=== PATIENT | female | born 1935 | race Caucasian/White ===

== ENCOUNTER 2019-02-10 22:39 | Inpatient (IN) | payer MEDICARE, MEDICAID ==
[~2019-02-10] VITALS: Ht 152.4 cm; Wt 49.0 kg
[~2019-02-10 22:39] MED LIST: BENA5TAB6 PO; MEMA5TAB7 PO; MIRT15TA6 PO; SERT25TA74 PO; SITA50TA3 PO; VITA1TAB20 PO
[2019-02-11] MEDS ORDERED: SODIUM CHLORIDE 0.9% 1,000 ML IV ONE (00:04)
[2019-02-11] MEDS ORDERED: ONDANSETRON HCL 4MG/2ML INJ IV STA (00:04)
[2019-02-11] MEDS ORDERED: MORPHINE SULFATE 4 MG/ML CPJ (NOT FOR IM USE) IV STA (00:04)
[2019-02-11 00:41] LABS: HEMATOCRIT. 33.6 % (36.0-48.0); HEMOGLOBIN. 11.6 g/dL (12.0-16.0); MEAN CORPUSCULAR HEMOGLOBIN 34.8 pg (28.0-32.0); MEAN CORPUSCULAR VOLUME 100.7 fL (81.0-99.0); MEAN PLATELET VOLUME 8.6 fl (7.4-10.4); PLATELET 254 x1000/uL (130-400); RED BLOOD CELL COUNT 3.34 mill/uL (4.2-5.4); RED CELL DISTRIBUTION WIDTH 13.6 % (11.6-14.6)
[2019-02-11 00:50] LABS: CHLORIDE 107 mEq/L (98-107)
[2019-02-11 00:51] LABS: INR 1.1; PROTHROMBIN TIME 10.9 sec (9.6-11.0)
[2019-02-11 05:20] VITALS: BP 112/49
[2019-02-11 06:08] LABS: PLATELET ESTIMATE NORMAL
[2019-02-11 06:13] VITALS: BP 112/49
[2019-02-11 08:00] VITALS: BP 129/54
[2019-02-11] MEDS ORDERED: ONDANSETRON HCL 4MG/2ML INJ IV PRN (08:45)
[2019-02-11] MEDS ORDERED: CEFTRIAXONE 1 G PREMIX 50 ML IV SCH (09:00)
[2019-02-11] MEDS: DEXT 5%/0.45% NACL KCL 20MEQ/L 1,000 ML IV SCH (11:28)
[2019-02-11] MEDS: ENOXAPARIN 30MG/0.3ML SYR SUBCUT SCH (11:29)
[2019-02-11 12:00] VITALS: BP 127/58
[2019-02-11 13:01] LABS: CLARITY URINE CLOUDY (CLEAR); COLOR URINE YELLOW (YELLOW); KETONES URINE 2+ (NEGATIVE); LEUKOCYTE ESTERASE URINE NEGATIVE (NEGATIVE); NITRITE URINE POSITIVE (NEGATIVE); OCCULT BLOOD URINE NEGATIVE (NEGATIVE); PROTEIN URINE NEGATIVE (NEGATIVE); SPECIFIC GRAVITY URINE 1.025 (1.005-1.030)
[2019-02-11] MEDS: CEFTRIAXONE 1,000 MG in DEXTROSE 5% WATER 50 ML IV SCH (13:42)
[2019-02-11 16:00] VITALS: BP 105/52
[2019-02-11] MEDS ORDERED: MORPHINE SULFATE 2 MG/ML CPJ (NOT FOR IM USE) IV PRN (16:30)
[2019-02-11] MEDS ORDERED: DEXTROSE 50% WATER 50ML SYRINGE IV PRN (16:30)
[2019-02-11] MEDS: BLOOD SUGAR DIAGNOSTIC STRIP TEST SCH ×2 (17:10→21:00)
[2019-02-11] MEDS: INSULIN LISPRO 100 UNITS/ML SUBCUT SCH (18:33)
[2019-02-11 20:00] VITALS: BP 135/51
[2019-02-12] VITALS (10 sets, daily range): BP systolic 107–155; BP diastolic 35–85
[2019-02-12 00:09] LABS: BASOPHILS % 0.1 % (0.0-2.0); HEMOGLOBIN. 8.2 g/dL (12.0-16.0); MEAN CORPUSCULAR HEMOGLOBIN 35.2 pg (28.0-32.0); MEAN CORPUSCULAR VOLUME 102.6 fL (81.0-99.0); MEAN PLATELET VOLUME 8.1 fl (7.4-10.4); MONOCYTES % 10.7 % (2.0-8.0); NEUTROPHILS % 77.2 % (40.0-76.0); PLATELET 186 x1000/uL (130-400); RED BLOOD CELL COUNT 2.34 mill/uL (4.2-5.4); RED CELL DISTRIBUTION WIDTH 13.5 % (11.6-14.6)
[2019-02-12 00:16] LABS: CHLORIDE 110 mEq/L (98-107)
[2019-02-12] MEDS: DEXT 5%/0.45% NACL KCL 20MEQ/L 1,000 ML IV SCH ×2 (06:24→06:30)
[2019-02-12] MEDS: INSULIN LISPRO 100 UNITS/ML SUBCUT SCH ×4 (06:36→18:55)
[2019-02-12] MEDS: BLOOD SUGAR DIAGNOSTIC STRIP TEST SCH ×3 (06:37→17:58)
[2019-02-12] MEDS: ENOXAPARIN 30MG/0.3ML SYR SUBCUT SCH (09:30)
[2019-02-12 09:36] LABS: BASOPHILS % 0.1 % (0.0-2.0); HEMATOCRIT. 21.6 % (36.0-48.0); HEMOGLOBIN. 7.6 g/dL (12.0-16.0); LYMPHOCYTES % 10.9 % (20.0-50.0); MEAN CORPUSCULAR HEMOGLOBIN 35.6 pg (28.0-32.0); MEAN CORPUSCULAR VOLUME 101.2 fL (81.0-99.0); MEAN PLATELET VOLUME 7.9 fl (7.4-10.4); MONOCYTES % 9.1 % (2.0-8.0); NEUTROPHILS % 79.9 % (40.0-76.0); PLATELET 160 x1000/uL (130-400); RED BLOOD CELL COUNT 2.13 mill/uL (4.2-5.4); RED CELL DISTRIBUTION WIDTH 13.4 % (11.6-14.6)
[2019-02-12 09:42] LABS: CHLORIDE 110 mEq/L (98-107)
[2019-02-12 09:52] LABS: CREATINE KINASE 714 IU/L (26-192)
[2019-02-12 09:55] LABS: CREATINE KINASE MB FRACTION 7.1 ng/mL (0.5-3.6)
[2019-02-12] MEDS ORDERED: HYDRALAZINE 20MG/ML VIAL IV PRN (10:45)
[2019-02-12] MEDS: CEFTRIAXONE 1,000 MG in DEXTROSE 5% WATER 50 ML IV SCH (11:10)
[2019-02-12] MEDS ORDERED: ACETAMINOPHEN 650MG SUPP PR PRN (15:15)
[2019-02-12] MEDS ORDERED: LORAZEPAM 2MG/ML CPJ IV PRN (15:15)
[2019-02-12] MEDS ORDERED: BISACODYL 10MG SUPP PR PRN (15:15)
[2019-02-12 15:51] LABS: BG CARBOXYHEMOGLOBIN 0.3 % (0.5-1.5); BG DEOXYHEMOGLOBIN 3.1 % (0.0-5.0); BG FRACTION INSPIRED OXYGEN 21; BG METHEMOGLOBIN 0.4 % (0.0-1.5); BG OXYGEN SATURATION 96.9 % (92.0-98.5); BG OXYHEMOGLOBIN 96.2 % (94.0-97.0); BG PCO2 36.3 mmHg (35.0-45.0); BG PH 7.439 (7.350-7.450); BG PO2 94.7 mmHg (75.0-100.0); BG SAMPLE SITE LEFT BRACHIAL; BG TOTAL HEMOGLOBIN 7.8 g/dL (12.0-18.0); BG VENT MODE ROOM AIR
[2019-02-12 16:59] LABS: HEMOGLOBIN 7.9 g/dL (12.0-16.0)
[2019-02-12 17:08] LABS: CREATINE KINASE MB FRACTION 6.5 ng/mL (0.5-3.6)
[2019-02-13] VITALS: BP 137/60
[2019-02-13] MEDS: DEXT 5%/0.45% NACL KCL 20MEQ/L 1,000 ML IV SCH ×3 (06:01→21:25)
[2019-02-13] MEDS: BLOOD SUGAR DIAGNOSTIC STRIP TEST SCH ×4 (06:13→21:20)
[2019-02-13] MEDS: INSULIN LISPRO 100 UNITS/ML SUBCUT SCH ×4 (06:13→21:24)
[2019-02-13 08:00] VITALS: BP 152/40
[2019-02-13] MEDS: ENOXAPARIN 30MG/0.3ML SYR SUBCUT SCH (09:30)
[2019-02-13 11:14] LABS: BASOPHILS % 0.1 % (0.0-2.0); EOSINOPHILS % 0.1 % (0.0-5.0); HEMATOCRIT. 29.4 % (36.0-48.0); HEMOGLOBIN. 10.1 g/dL (12.0-16.0); LYMPHOCYTES % 13.5 % (20.0-50.0); MEAN CORPUSCULAR HEMOGLOBIN 34.5 pg (28.0-32.0); MEAN PLATELET VOLUME 8.6 fl (7.4-10.4); MONOCYTES % 8.7 % (2.0-8.0); NEUTROPHILS % 77.6 % (40.0-76.0); PLATELET 150 x1000/uL (130-400); RED BLOOD CELL COUNT 2.94 mill/uL (4.2-5.4); RED CELL DISTRIBUTION WIDTH 13.8 % (11.6-14.6)
[2019-02-13 11:30] LABS: CHLORIDE 108 mEq/L (98-107)
[2019-02-13] MEDS ORDERED: HYDROCODONE/ACETAMINOPHEN 5/325MG TABLET PO PRN (11:30)
[2019-02-13 11:56] VITALS: BP 149/44
[2019-02-13] MEDS: CEFTRIAXONE 1,000 MG in DEXTROSE 5% WATER 50 ML IV SCH (13:40)
[2019-02-13 16:00] VITALS: BP 169/60
[2019-02-13 16:27] LABS: BASOPHILS % 0.1 % (0.0-2.0); EOSINOPHILS % 0.2 % (0.0-5.0); HEMATOCRIT. 27.5 % (36.0-48.0); HEMOGLOBIN. 9.6 g/dL (12.0-16.0); LYMPHOCYTES % 8.4 % (20.0-50.0); MEAN CORPUSCULAR HEMOGLOBIN 35.1 pg (28.0-32.0); MEAN CORPUSCULAR VOLUME 100.5 fL (81.0-99.0); MEAN PLATELET VOLUME 8.5 fl (7.4-10.4); NEUTROPHILS % 82.3 % (40.0-76.0); PLATELET 140 x1000/uL (130-400); RED BLOOD CELL COUNT 2.74 mill/uL (4.2-5.4); RED CELL DISTRIBUTION WIDTH 13.8 % (11.6-14.6)
[2019-02-13 20:00] VITALS: BP 144/46
[2019-02-13] MEDS: MORPHINE SULFATE 2 MG/ML CPJ (NOT FOR IM USE) IV PRN (23:47)
[2019-02-14] VITALS: BP 135/61
[2019-02-14 04:00] VITALS: BP 115/55
[2019-02-14] MEDS: BLOOD SUGAR DIAGNOSTIC STRIP TEST SCH ×4 (06:20→20:34)
[2019-02-14] MEDS: INSULIN LISPRO 100 UNITS/ML SUBCUT SCH ×4 (06:21→20:49)
[2019-02-14 08:00] VITALS: BP 128/72
[2019-02-14] MEDS: DEXT 5%/0.45% NACL KCL 20MEQ/L 1,000 ML IV SCH ×2 (08:50→14:18)
[2019-02-14 09:15] LABS: BASOPHILS % 0.3 % (0.0-2.0); EOSINOPHILS % 0.6 % (0.0-5.0); HEMOGLOBIN. 8.8 g/dL (12.0-16.0); LYMPHOCYTES % 17.9 % (20.0-50.0); MEAN CORPUSCULAR HEMOGLOBIN 35.4 pg (28.0-32.0); MEAN CORPUSCULAR VOLUME 100.3 fL (81.0-99.0); MEAN PLATELET VOLUME 7.5 fl (7.4-10.4); MONOCYTES % 10.4 % (2.0-8.0); NEUTROPHILS % 70.8 % (40.0-76.0); PLATELET 145 x1000/uL (130-400); RED BLOOD CELL COUNT 2.49 mill/uL (4.2-5.4); RED CELL DISTRIBUTION WIDTH 13.6 % (11.6-14.6)
[2019-02-14] MEDS ORDERED: VANCOMYCIN HCL 1 GM/VIAL ONE (09:50)
[2019-02-14] MEDS ORDERED: BACITRACIN 15GM TUBE TOP ONE (09:50)
[2019-02-14] MEDS ORDERED: DEXAMETHASONE 4MG/ML 1ML VIAL ONE (10:33)
[2019-02-14] MEDS ORDERED: EPHEDRINE SULFATE 50MG/ML VIAL ONE (10:33)
[2019-02-14] MEDS ORDERED: SODIUM CHLORIDE 0.9% 10ML VIAL ONE (10:33)
[2019-02-14] MEDS ORDERED: CEFAZOLIN SODIUM 1000MG/VIAL ONE (10:45)
[2019-02-14] MEDS ORDERED: GLYCOPYRROLATE 0.2 MG/ML 2ML VIAL ONE (10:47)
[2019-02-14] MEDS ORDERED: ESMOLOL HCL 10MG/ML 10ML VIAL IV ONE (11:03)
[2019-02-14] MEDS ORDERED: BUPIVACAINE HCL 0.5% (5MG/ML) 50ML ONE (11:30)
[2019-02-14] MEDS ORDERED: HYDROCODONE/ACETAMINOPHEN 5/325MG TABLET PO PRN (11:45)
[2019-02-14] MEDS ORDERED: ONDANSETRON HCL 4MG/2ML INJ ONE (11:50)
[2019-02-14] MEDS ORDERED: LEVOFLOXACIN 500MG PREMIX 100 ML IV SCH (12:00)
[2019-02-14] MEDS ORDERED: CEFAZOLIN SODIUM 1000MG/VIAL IV SCH (14:00)
[2019-02-14 14:13] VITALS: BP 145/68
[2019-02-14] MEDS: CEFAZOLIN 1000MG PREMIX 50 ML IV SCH ×2 (15:03→21:43)
[2019-02-14 16:00] VITALS: BP 122/67
[2019-02-14 20:00] VITALS: BP 127/57
[2019-02-14] MEDS: MORPHINE SULFATE 2 MG/ML CPJ (NOT FOR IM USE) IV PRN (20:27)
[2019-02-15] VITALS (7 sets, daily range): BP systolic 108–140; BP diastolic 51–70
[2019-02-15] MEDS: DEXT 5%/0.45% NACL KCL 20MEQ/L 1,000 ML IV SCH ×2 (03:05→14:55)
[2019-02-15] MEDS: CEFAZOLIN 1000MG PREMIX 50 ML IV SCH (05:15)
[2019-02-15] MEDS: BLOOD SUGAR DIAGNOSTIC STRIP TEST SCH ×4 (06:42→21:00)
[2019-02-15] MEDS: INSULIN LISPRO 100 UNITS/ML SUBCUT SCH ×4 (06:45→21:37)
[2019-02-15 07:04] LABS: HEMATOCRIT 25.9 % (36.0-48.0); MEAN CORPUSCULAR HEMOGLOBIN 35.3 pg (28.0-32.0); MEAN CORPUSCULAR VOLUME 101.6 fL (81.0-99.0); PLATELET 178 x1000/uL (130-400); RED BLOOD CELL COUNT 2.55 mill/uL (4.2-5.4); RED CELL DISTRIBUTION WIDTH 13.8 % (11.6-14.6)
[2019-02-15 07:47] LABS: CHLORIDE 108 mEq/L (98-107)
[2019-02-15] MEDS: MORPHINE SULFATE 2 MG/ML CPJ (NOT FOR IM USE) IV PRN (09:25)
[2019-02-15] MEDS: LEVOFLOXACIN 250MG PREMIX 50 ML IV SCH (11:58)
[2019-02-15] MEDS ORDERED: MORPHINE SULFATE 2 MG/ML CPJ (NOT FOR IM USE) IV PRN (16:45)
[2019-02-15] MEDS: ASPIRIN 81MG EC TABLET PO SCH (17:15)
[2019-02-16 04:00] VITALS: BP 114/57
[2019-02-16] MEDS: BLOOD SUGAR DIAGNOSTIC STRIP TEST SCH ×4 (06:05→21:54)
[2019-02-16] MEDS: INSULIN LISPRO 100 UNITS/ML SUBCUT SCH ×4 (06:26→21:54)
[2019-02-16] MEDS: ASPIRIN 81MG EC TABLET PO SCH (10:06)
[2019-02-16 10:56] LABS: BASOPHILS % 0.1 % (0.0-2.0); EOSINOPHILS % 0.7 % (0.0-5.0); HEMATOCRIT. 25.3 % (36.0-48.0); HEMOGLOBIN. 8.7 g/dL (12.0-16.0); LYMPHOCYTES % 8.1 % (20.0-50.0); MEAN CORPUSCULAR VOLUME 101.9 fL (81.0-99.0); MEAN PLATELET VOLUME 8.6 fl (7.4-10.4); MONOCYTES % 6.4 % (2.0-8.0); NEUTROPHILS % 84.7 % (40.0-76.0); PLATELET 201 x1000/uL (130-400); RED BLOOD CELL COUNT 2.48 mill/uL (4.2-5.4); RED CELL DISTRIBUTION WIDTH 13.9 % (11.6-14.6)
[2019-02-16 10:57] LABS: CHLORIDE 106 mEq/L (98-107)
[2019-02-16 12:00] VITALS: BP 119/54
[2019-02-16] MEDS: LEVOFLOXACIN 250MG PREMIX 50 ML IV SCH (13:07)
[2019-02-16 16:00] VITALS: BP 103/44
[2019-02-16] MEDS ORDERED: MORPHINE SULFATE 2 MG/ML CPJ (NOT FOR IM USE) IV PRN (18:15)
[2019-02-16 20:00] VITALS: BP 113/47
[2019-02-17] VITALS (11 sets, daily range): BP systolic 107–139; BP diastolic 46–80
[2019-02-17 09:48] LABS: BASOPHILS % 0.3 % (0.0-2.0); EOSINOPHILS % 2.1 % (0.0-5.0); HEMATOCRIT. 21.7 % (36.0-48.0); HEMOGLOBIN. 7.6 g/dL (12.0-16.0); LYMPHOCYTES % 18.7 % (20.0-50.0); MEAN CORPUSCULAR HEMOGLOBIN 35.7 pg (28.0-32.0); MEAN CORPUSCULAR VOLUME 101.9 fL (81.0-99.0); MEAN PLATELET VOLUME 7.8 fl (7.4-10.4); MONOCYTES % 7.3 % (2.0-8.0); NEUTROPHILS % 71.6 % (40.0-76.0); PLATELET 246 x1000/uL (130-400); RED BLOOD CELL COUNT 2.13 mill/uL (4.2-5.4); RED CELL DISTRIBUTION WIDTH 13.9 % (11.6-14.6)
[2019-02-17 10:00] LABS: CHLORIDE 106 mEq/L (98-107)
[2019-02-17] MEDS: LEVOFLOXACIN 250MG PREMIX 50 ML IV SCH (11:29)
[2019-02-17] MEDS: ASPIRIN 81MG EC TABLET PO SCH (11:42)
[2019-02-17] MEDS: BLOOD SUGAR DIAGNOSTIC STRIP TEST SCH ×4 (11:51→21:24)
[2019-02-17] MEDS: INSULIN LISPRO 100 UNITS/ML SUBCUT SCH ×4 (11:56→21:33)
[2019-02-17] MEDS: ACETAMINOPHEN 325MG TABLET PO PRN (14:18)
[2019-02-17 17:43] LABS: HEMATOCRIT 21.1 % (36.0-48.0); HEMOGLOBIN 7.4 g/dL (12.0-16.0)
[2019-02-17] MEDS: ENOXAPARIN 30MG/0.3ML SYR SUBCUT SCH (20:57)
[2019-02-18] VITALS: BP 122/70
[2019-02-18 04:00] VITALS: BP 143/53
[2019-02-18 06:16] LABS: BASOPHILS % 0.6 % (0.0-2.0); EOSINOPHILS % 0.9 % (0.0-5.0); HEMATOCRIT. 29.2 % (36.0-48.0); HEMOGLOBIN. 10.3 g/dL (12.0-16.0); LYMPHOCYTES % 15.2 % (20.0-50.0); MEAN CORPUSCULAR HEMOGLOBIN 34.2 pg (28.0-32.0); MEAN CORPUSCULAR VOLUME 96.9 fL (81.0-99.0); MEAN PLATELET VOLUME 7.9 fl (7.4-10.4); MONOCYTES % 7.3 % (2.0-8.0); PLATELET 255 x1000/uL (130-400); RED BLOOD CELL COUNT 3.01 mill/uL (4.2-5.4); RED CELL DISTRIBUTION WIDTH 15.1 % (11.6-14.6)
[2019-02-18 06:19] LABS: CHLORIDE 106 mEq/L (98-107)
[2019-02-18] MEDS: ACETAMINOPHEN 325MG TABLET PO PRN (06:43)
[2019-02-18] MEDS: INSULIN LISPRO 100 UNITS/ML SUBCUT SCH ×4 (06:50→22:17)
[2019-02-18] MEDS: BLOOD SUGAR DIAGNOSTIC STRIP TEST SCH ×4 (06:50→21:00)
[2019-02-18 08:00] VITALS: BP 106/73
[2019-02-18] MEDS: ASPIRIN 81MG EC TABLET PO SCH (09:48)
[2019-02-18] MEDS: LEVOFLOXACIN 250MG TABLET PO SCH (11:00)
[2019-02-18 12:00] VITALS: BP 136/72
[2019-02-18] MEDS: LOSARTAN POTASSIUM 25 MG TABLET PO SCH (12:30)
[2019-02-18 16:00] VITALS: BP 129/54
[2019-02-18 20:00] VITALS: BP 151/88
[2019-02-18] MEDS: ENOXAPARIN 30MG/0.3ML SYR SUBCUT SCH (21:35)
[2019-02-18] MEDS: METOPROLOL TARTRATE 25MG TABLET PO SCH (21:35)
[2019-02-19] VITALS: BP 134/53
[2019-02-19 04:00] VITALS: BP 140/45
[2019-02-19] MEDS: INSULIN LISPRO 100 UNITS/ML SUBCUT SCH ×3 (06:13→12:24)
[2019-02-19] MEDS: BLOOD SUGAR DIAGNOSTIC STRIP TEST SCH ×3 (06:13→17:27)
[2019-02-19 06:23] LABS: BASOPHILS % 0.4 % (0.0-2.0); EOSINOPHILS % 2.5 % (0.0-5.0); HEMATOCRIT. 31.2 % (36.0-48.0); HEMOGLOBIN. 10.8 g/dL (12.0-16.0); LYMPHOCYTES % 17.5 % (20.0-50.0); MEAN CORPUSCULAR VOLUME 97.8 fL (81.0-99.0); MEAN PLATELET VOLUME 7.9 fl (7.4-10.4); MONOCYTES % 8.7 % (2.0-8.0); NEUTROPHILS % 70.9 % (40.0-76.0); PLATELET 311 x1000/uL (130-400); RED BLOOD CELL COUNT 3.19 mill/uL (4.2-5.4); RED CELL DISTRIBUTION WIDTH 15.4 % (11.6-14.6)
[2019-02-19 06:30] LABS: CHLORIDE 105 mEq/L (98-107)
[2019-02-19] MEDS: METOPROLOL TARTRATE 25MG TABLET PO SCH (09:40)
[2019-02-19] MEDS: ASPIRIN 81MG EC TABLET PO SCH (09:40)
[2019-02-19] MEDS: LOSARTAN POTASSIUM 25 MG TABLET PO SCH (09:40)
[2019-02-19] MEDS: LEVOFLOXACIN 250MG TABLET PO SCH (09:42)
[2019-02-19] MEDS ORDERED: LOSARTAN POTASSIUM 25 MG TABLET PO SCH (15:30)
[2019-02-19 17:31] VITALS: BP 121/86
[2019-02-19 17:42] VITALS: BP 107/66
[2019-02-19 20:00] VITALS: BP 112/45
== END 2019-02-19 20:30 | DRG 308 ==
LOC: EDBD 22:39 → ER 02-11 00:38 → 8WST 02-11 02:18 → EDBEDREQTM 02-11 02:23 → EDBEDREQ 02-11 02:23 → ENRESERV 02-11 04:17
PROVIDERS: ADMIT Internal Medicine; ATTEND Internal Medicine
PROC: 0QS604Z Reposition Right Upper Femur with Internal Fixation Device, Open Approach (ICD-10-PCS; principal; 2019-02-16)
PROC: 30233N1 Transfusion of Nonautologous Red Blood Cells into Peripheral Vein, Percutaneous Approach (ICD-10-PCS; 2019-02-16)
DX: S72.141A Displaced intertrochanteric fracture of right femur, initial encounter for closed fracture (principal); I21.4 Non-ST elevation (NSTEMI) myocardial infarction; I50.33 Acute on chronic diastolic (congestive) heart failure; N39.0 Urinary tract infection, site not specified; M62.82 Rhabdomyolysis; E11.9 Type 2 diabetes mellitus without complications; B96.20 Unspecified Escherichia coli [E. coli] as the cause of diseases classified elsewhere; S72.001A Fracture of unspecified part of neck of right femur, initial encounter for closed fracture; M97.01XA Periprosthetic fracture around internal prosthetic right hip joint, initial encounter; I11.0 Hypertensive heart disease with heart failure; W18.39XA Other fall on same level, initial encounter; Y93.89 Activity, other specified; Y92.89 Other specified places as the place of occurrence of the external cause; Y99.8 Other external cause status; D64.9 Anemia, unspecified; E86.0 Dehydration; F03.90 Unspecified dementia, unspecified severity, without behavioral disturbance, psychotic disturbance, mood disturbance, and anxiety; F32.9 Major depressive disorder, single episode, unspecified; F41.9 Anxiety disorder, unspecified; I10 Essential (primary) hypertension; Z79.82 Long term (current) use of aspirin; Z82.49 Family history of ischemic heart disease and other diseases of the circulatory system; Z53.9 Procedure and treatment not carried out, unspecified reason; Z79.84 Long term (current) use of oral hypoglycemic drugs
CPT/HCPCS: 36415; 36600; 71045; 73502; 73552; 76000; 80048; 81003; 82375; 82550; 82553; 82805; 82962; 83036; 83735; 84145; 84443; 84484; 85014; 85018; 85027; 86850; 86900; 86920; 87077; 87186; 93005; 93306; 97163; 97530; 97535; 99285; C1713; C1893; J0690; J0696; J1100; J1650; J1815; J1956; J2270; J2405; J3370; J3490; J7030; J7040; J7060; P9016